=== PATIENT | female | born 1995 | race Caucasian/White ===

== ENCOUNTER 2016-07-26 09:08 | Emergency (ER) | payer OTHER ==
[~2016-07-26] VITALS: Ht 160 cm; Wt 105.0 kg
[~2016-07-26 09:08] MED LIST: DEPO400I IM
[2016-07-26 09:12] VITALS: BP 144/82; PULSE 85; RESP 14; TEMP 98; O2SAT 98
[2016-07-26 09:35] VITALS: BP 144/82; PULSE 85; RESP 16; TEMP 98; O2SAT 98
[2016-07-26] MEDS ORDERED: birth control PO (09:44)
[2016-07-26] MEDS ORDERED: ONDANSETRON ODT 4 MG TAB PO ONE (09:45)
[2016-07-26] MEDS ORDERED: ZOFR4TAB PO (10:17)
--- NOTE | 2016-07-26 10:20 | PD ---
HPI Chief Complaint: GI Complaint Time Seen by Provider: 09:31 Travel History International Travel<30 days: No Contact w/Intl Traveler<30days: No Traveled to known affect area: No History of Present Illness HPI The patient was seen and examined in the presence of the nurse. This patient complains of nausea and vomiting and diarrhea. Started yesterday. Severity is mild at this point. She one episode of diarrhea today and vomited one time. No alleviating factors. She is not having abdominal pain. PFSH Past Medical History Anxiety: Yes Developmental Delay: No Diminished Hearing: No Respiratory: Yes (CHILDHOOD ASTHMA) Immunizations Current: Yes Tetanus Vaccination: < 5 Years ?: Not LMP: 07/20/16 Past Surgical History Other Surgery: Yes (AUGMENTATION) Social History Alcohol Use: Yes (OCC) Tobacco Use: Yes (2 cigg daily) Substance Use: No Allergies-Medications (Allergen,Severity, Reaction): Coded Allergies: No Known Allergies (Verified , 07/26/16) Reported Meds & Prescriptions Reported Meds & Active Scripts Active Zofran (Ondansetron HCl) 4 Mg Tab 4 Mg PO Q6HR PRN Reported [ control] 1 Tab PO DAILY Review of Systems General / Constitutional: No: Fever HENT: No: Headaches Cardiovascular: No: Chest Pain or Discomfort Respiratory: No: Cough Physical Exam Narrative GASTROINTESTINAL: Abdomen soft, non-tender, nondistended. Positive bowel sounds. No hepato-splenomegaly, or palpable masses. No guarding. SKIN: Focused skin assessment reveals no rash or ulcers. Skin is warm and dry. Palpation shows no induration or nodules. NECK: Symmetrical appearance, midline trachea. No mass or crepitus. Thyroid without enlargement, tenderness, or mass. Data Data Last Documented VS Vital Signs Date Time Temp Pulse Resp B/P Pulse Ox O2 Delivery O2 Flow Rate FiO2 07/26/16 09:35 98.0 85 16 144/82 98 07/26/16 09:12 Room Air Orders Ed Urine Pregnancytest Poc (07/26/16 09:12) Ondansetron Odt (Zofran Odt) (07/26/16 09:45) MDM Medical Decision Making Medical Screen Exam Complete: Yes Emergency Medical Condition: Yes Medical Record Reviewed: Yes Differential Diagnosis Gastroenteritis, food poisoning, colitis Narrative Course I have reviewed the patient's electronic medical record. Patient looks clinically well. She has soft benign nontender abdomen. She is euvolemic Urine is negative I prescribed her some Zofran gave her dose now Diagnosis Primary Impression: Nausea vomiting and diarrhea Additional Instructions: The patient was advised to follow up with their physician and return if they worsen. I have recommended clear liquids for 24 hours, then gradually advance as tolerated. Med/Other Pt SpecificInfo: Prescription(s) given Scripts Ondansetron (Zofran)4 Mg Tab4 Mg PO Q6HR PRN (NAUSEA OR VOMITING) #12 TAB Ref 0 Prov:Josh Terry MD 07/26/16 Disposition: 01 DISCHARGE HOME Condition: Stable Josh Terry MD Jul 26, 2016 10:19
== END 2016-07-26 10:28 | disposition home or self-care (01) ==
LOC: PHED 09:08
DX: R11.2 Nausea with vomiting, unspecified (principal); R19.7 Diarrhea, unspecified
CPT/HCPCS: 84703; 99283

== ENCOUNTER 2016-07-28 09:13 | Emergency (ER) | payer OTHER ==
[~2016-07-28] VITALS: Ht 160 cm; Wt 100.0 kg
[~2016-07-28 09:13] MED LIST changes: -DEPO400I IM; +ZOFR4TAB PO; +birth control PO
[2016-07-28 09:15] VITALS: BP 130/83; PULSE 88; RESP 20; TEMP 98.3; O2SAT 99
--- NOTE | 2016-07-28 09:56 | PD ---
HPI Chief Complaint: GI Complaint Time Seen by Provider: 09:47 Travel History International Travel<30 days: No Contact w/Intl Traveler<30days: No Traveled to known affect area: No History of Present Illness HPI The patient was seen and examined in the presence of the nurse. This patient complains of diarrhea with some small amounts of bright red blood in the diarrhea. I saw HER-2 days ago for her nausea vomiting diarrhea. Zofran has stopped her nausea and vomiting but she had 3 episodes of liquid runny stool this morning. Not having fever or abdominal pain. Symptoms severity is to moderate. Nausea alleviated by medication. Duration 3 days PFSH Past Medical History Anxiety: Yes Developmental Delay: No Diminished Hearing: No Respiratory: Yes (CHILDHOOD ASTHMA) Immunizations Current: Yes ?: Not LMP: 07/21/16 Past Surgical History Other Surgery: Yes (BREAST AUGMENTATION) Social History Alcohol Use: Yes (OCC wine) Tobacco Use: Yes (1/4 ppd cigs) Substance Use: No Allergies-Medications (Allergen,Severity, Reaction): Coded Allergies: No Known Allergies (Verified , 07/26/16) Reported Meds & Prescriptions Reported Meds & Active Scripts Active Zofran (Ondansetron HCl) 4 Mg Tab 4 Mg PO Q6HR PRN Reported [ control] 1 Tab PO DAILY Review of Systems General / Constitutional: No: Fever Eyes: No: Visual changes HENT: No: Headaches Cardiovascular: No: Chest Pain or Discomfort Respiratory: No: Shortness of Breath Gastrointestinal: Positive: Diarrhea, Hematochezia, No: Abdominal Pain Genitourinary: No: Dysuria Musculoskeletal: No: Pain Skin: No Rash Neurologic: No: Weakness Psychiatric: No: Depression Endocrine: No: Polydipsia Hematologic/Lymphatic: No: Easy Bruising Physical Exam Narrative GENERAL: Well-nourished, well-developed patient in no apparent distress. SKIN: Focused skin assessment reveals no rash and nodules. Skin is Warm and dry. HEAD: Atraumatic. Normocephalic. EYES: Pupils equal and round. No scleral icterus. No injection or drainage. ENT: No nasal bleeding or discharge. Mucous membranes pink and moist. NECK: Trachea midline. No JVD. CARDIOVASCULAR: Regular rate and rhythm. No murmur appreciated. RESPIRATORY: No accessory muscle use. Clear to auscultation. Breath sounds equal bilaterally. GASTROINTESTINAL: Abdomen soft, non-tender, nondistended. Hepatic and splenic margins not palpable. MUSCULOSKELETAL: No obvious deformities. No clubbing. No cyanosis. No edema. NEUROLOGICAL: Awake and alert. No obvious cranial nerve deficits. Motor grossly within normal limits. Normal speech. PSYCHIATRIC: Appropriate mood and affect; insight and judgment normal. Data Data Last Documented VS Vital Signs Date Time Temp Pulse Resp B/P Pulse Ox O2 Delivery O2 Flow Rate FiO2 07/28/16 09:15 98.3 88 20 130/83 99 Room Air Orders Sodium Chlor 0.9% 1000 Ml Inj (Ns 1000 M (07/28/16 10:00) Iv Access Insert/Monitor (07/28/16 09:52) Complete Blood Count With Diff (07/28/16 09:52) Basic Metabolic Panel (Bmp) (07/28/16 09:52) Labs Laboratory Tests Test 07/28/16 10:15 White Blood Count 8.8 TH/MM3 Red Blood Count 4.96 MIL/MM3 Hemoglobin 15.2 GM/DL Hematocrit 44.0 % Mean Corpuscular Volume 88.8 FL Mean Corpuscular Hemoglobin 30.6 PG Mean Corpuscular Hemoglobin 34.5 % Concent Red Cell Distribution Width 12.2 % Platelet Count 233 TH/MM3 Mean Platelet Volume 8.7 FL Neutrophils (%) (Auto) 66.1 % Lymphocytes (%) (Auto) 26.0 % Monocytes (%) (Auto) 6.0 % Eosinophils (%) (Auto) 1.4 % Basophils (%) (Auto) 0.5 % Neutrophils # (Auto) 5.8 TH/MM3 Lymphocytes # (Auto) 2.3 TH/MM3 Monocytes # (Auto) 0.5 TH/MM3 Eosinophils # (Auto) 0.1 TH/MM3 Basophils # (Auto) 0.0 TH/MM3 CBC Comment DIFF FINAL Differential Comment Sodium Level 138 MEQ/L Potassium Level 4.2 MEQ/L Chloride Level 107 MEQ/L Carbon Dioxide Level 21.3 MEQ/L Anion Gap 10 MEQ/L Blood Urea Nitrogen 6 MG/DL Creatinine 0.69 MG/DL Estimat Glomerular Filtration 107 ML/MIN Rate Random Glucose 84 MG/DL Calcium Level 9.3 MG/DL [facility] Medical Decision Making Medical Screen Exam Complete: Yes Emergency Medical Condition: Yes Medical Record Reviewed: Yes Differential Diagnosis Colitis, gastritis, food poisoning Narrative Course I have reviewed the patient's electronic medical record. Reviewed her visit from 2 days ago. She had negative urine at that time IV placed CBC is normal Metabolic profile is normal I gave her 1 L normal saline IV bolus She has normal vital signs and a soft benign nontender abdomen Recommend primary care follow-up and if bleeding persists to follow up with GI Diagnosis Primary Impression: Hematochezia Additional Impression: Diarrhea Qualified Code: R19.7 - Diarrhea, unspecified type Additional Instructions: The patient was advised to follow up with their physician and return if they worsen. Follow-up with GI physician if bloody stool persists Med/Other Pt SpecificInfo: Other Disposition: DISCHARGE HOME Condition: Stable Josh Terry MD Jul 28, 2016 09:56
[2016-07-28] MEDS ORDERED: SODIUM CHLOR 0.9% 1000 ML INJ 1,000 ML IV ONE (10:00)
[2016-07-28 10:36] LABS: AUTOMATED NEUTROPHIL # 5.8 TH/MM3 (1.8-7.7); BASOPHIL % 0.5 % (0.0-2.0); EOSINOPHIL # 0.1 TH/MM3 (0-0.4); EOSINOPHIL % 1.4 % (0.0-4.0); HEMO FLAGS DIFF FINAL; LYMPHOCYTE # 2.3 TH/MM3 (1.0-4.8); MEAN CELL VOLUME 88.8 FL (80.0-100.0); MEAN CORPUSCULAR HEMOGLOBIN 30.6 PG (27.0-34.0); MEAN CORPUSCULAR HGB CONC 34.5 % (32.0-36.0); NEUT % 66.1 % (16.0-70.0); PLATELET COUNT 233 TH/MM3 (150-450); RED BLOOD COUNT 4.96 MIL/MM3 (4.00-5.30); RED CELL DISTRIBUTION WIDTH 12.2 % (11.6-17.2); WHITE BLOOD COUNT 8.8 TH/MM3 (4.0-11.0)
[2016-07-28 10:46] LABS: BICARBONATE 21.3 MEQ/L (21.0-32.0); POTASSIUM 4.2 MEQ/L (3.5-5.1)
== END 2016-07-28 12:00 | disposition home or self-care (01) ==
LOC: NEPD 09:13
DX: K92.1 Melena (principal); R19.7 Diarrhea, unspecified
CPT/HCPCS: 80048; 85025; 99284; J7030

== ENCOUNTER 2016-10-21 14:56 | Emergency (ER) | payer OTHER ==
[~2016-10-21] VITALS: Ht 160 cm; Wt 90.0 kg
[2016-10-21 14:57] VITALS: BP 124/91; PULSE 109; RESP 17; TEMP 98.8; O2SAT 99
[2016-10-21] MEDS ORDERED: SODIUM CHLORIDE 0.9% FLUSH 10 ML FLUSH IV FLUSH PRN (15:15)
--- NOTE | 2016-10-21 15:21 | PD ---
HPI Chief Complaint: GI Complaint Time Seen by Provider: 15:04 Travel History International Travel<30 days: No Contact w/Intl Traveler<30days: No Traveled to known affect area: No History of Present Illness HPI 21-year-old female complains of nausea vomiting and bilateral flank pain. Patient states that the symptoms started about 3 months ago. Patient states that she has intermittent nausea vomiting. Patient states that she has aching pain and sharp pain bilateral flank area intermittently also. Patient states that she has about 35 pounds weight loss over the past 3 months. Patient denies any headache. Patient denies any chest pain or shortness of breath. Patient denies abdominal pain. Patient denies any dysuria or frequency. Patient denies any vaginal discharge or bleeding. Patient denies any chronic medical problem. Patient states that she smoked pot occasionally. Patient denies any other illicit drug abuse. Patient denies any alcohol abuse. PFSH Past Medical History Anxiety: Yes Developmental Delay: No Diminished Hearing: No Respiratory: Yes (CHILDHOOD ASTHMA) Immunizations Current: Yes ?: Not LMP: 10/03/16 Past Surgical History Other Surgery: Yes (BREAST AUGMENTATION) Social History Alcohol Use: Yes (OCC wine) Tobacco Use: Yes (1/4 ppd cigs) Substance Use: No Allergies-Medications (Allergen,Severity, Reaction): Coded Allergies: No Known Allergies (Verified , 07/26/16) Reported Meds & Prescriptions Reported Meds & Active Scripts Active Zofran (Ondansetron HCl) 4 Mg Tab 4 Mg PO Q6HR PRN Reported [ control] 1 Tab PO DAILY Review of Systems General / Constitutional: No: Fever Eyes: No: Visual changes HENT: No: Headaches Cardiovascular: No: Chest Pain or Discomfort Respiratory: No: Shortness of Breath Gastrointestinal: Positive: Nausea, Vomiting, No: Abdominal Pain Genitourinary: No: Dysuria Musculoskeletal: No: Pain Skin: No Rash Neurologic: No: Weakness Psychiatric: No: Depression Endocrine: No: Polydipsia Hematologic/Lymphatic: No: Easy Bruising Physical Exam Narrative GENERAL: Well-nourished, well-developed patient. SKIN: Focused skin assessment warm/dry. HEAD: Normocephalic. EYES: No scleral icterus. No injection or drainage. NECK: Supple, trachea midline. No JVD or lymphadenopathy. CARDIOVASCULAR: Regular rate and rhythm without murmurs, gallops, or rubs. RESPIRATORY: Breath sounds equal bilaterally. No accessory muscle use. GASTROINTESTINAL: Abdomen soft, non-tender, nondistended. MUSCULOSKELETAL: No cyanosis, or edema. BACK: Patient has mild tenderness on palpation bilateral flank area. No CVA tenderness. Neurologic exam normal. Data Data Last Documented VS Vital Signs Date Time Temp Pulse Resp B/P (MAP) Pulse Ox O2 Delivery O2 Flow Rate FiO2 10/21/16 14:57 98.8 109 17 124/91 (102) 99 Orders Orders Complete Blood Count With Diff (10/21/16 15:13) Comprehensive Metabolic Panel (10/21/16 15:13) Lipase (10/21/16 15:13) Urinalysis - C+S If Indicated (10/21/16 15:13) Ct Abd/Pel W Iv Contrast(Rout) (10/21/16 15:13) Iv Access Insert/Monitor (10/21/16 15:13) Ecg Monitoring (10/21/16 15:13) Oximetry (10/21/16 15:13) Sodium Chloride 0.9% Flush (Ns Flush) (10/21/16 15:15) Ed Urine Pregnancytest Poc (10/21/16 15:13) [facility] Medical Decision Making Medical Screen Exam Complete: Yes Emergency Medical Condition: Yes Differential Diagnosis Differential diagnosis including musculoskeletal, gastritis, PUD, pancreatitis, cholecystitis, colitis, UTI, pyelonephritis, nephrolithiasis. Narrative Course 21-year-old female with intermittent nausea vomiting and bilateral flank pain. Gurmeet Christianson MD Oct 21, 2016 15:21
[2016-10-21 15:32] VITALS: RESP 16; O2SAT 96
[2016-10-21 15:41] LABS: AUTOMATED NEUTROPHIL # 4.5 TH/MM3 (1.8-7.7); BASOPHIL % 0.4 % (0.0-2.0); EOSINOPHIL # 0.1 TH/MM3 (0-0.4); EOSINOPHIL % 1.8 % (0.0-4.0); HEMATOCRIT 44.4 % (35.0-46.0); HEMO FLAGS DIFF FINAL; LYMPH % 29.8 % (9.0-44.0); LYMPHOCYTE # 2.2 TH/MM3 (1.0-4.8); MEAN CELL VOLUME 93.9 FL (80.0-100.0); MEAN CORPUSCULAR HEMOGLOBIN 31.9 PG (27.0-34.0); MONO % 6.6 % (0.0-8.0); NEUT % 61.4 % (16.0-70.0); PLATELET COUNT 211 TH/MM3 (150-450); RED BLOOD COUNT 4.73 MIL/MM3 (4.00-5.30); WHITE BLOOD COUNT 7.3 TH/MM3 (4.0-11.0)
[2016-10-21 15:49] LABS: BLOOD, URINE NEG (NEG); COMMENT (UR) CULT NOT INDICATED; CULTURE IF INDICATED CULT NOT INDICATED; GLUCOSE,URINE NEG (NEG); KETONE, URINE NEG (NEG); NITRITE,URINE NEG (NEG); SQUAMOUS EPITHELIAL CELL URINE 3 /hpf (0-5); URINE COLOR LIGHT-YELLOW (YELLW/STRAW)
[2016-10-21 17:11] LABS: ALT (GPT) 17 U/L (10-53); ANION GAP 7 MEQ/L (5-15); AST (GOT) 16 U/L (15-37); BICARBONATE 26.7 MEQ/L (21.0-32.0); BLOOD UREA NITROGEN 9 MG/DL (7-18); CHLORIDE 107 MEQ/L (98-107); GLOMERULAR FILTRATION RATE 90 ML/MIN (>89); POTASSIUM 3.8 MEQ/L (3.5-5.1); SODIUM (NA) 141 MEQ/L (136-145)
[2016-10-21 17:15] LABS: ALKALINE PHOSPHATASE 93 U/L (45-117); TOTAL BILIRUBIN ADULT 1.1 MG/DL (0.2-1.0)
[2016-10-21] MEDS ORDERED: IOHEXOL 350 MG/ML 10 ML VIAL (for RAD DIAG) IVCONTRAST ONE (17:55)
--- NOTE | 2016-10-21 18:08 | RADRPT ---
EXAM DATE/TIME: 10/21/2016 17:55 [facility] COMPARISON: No previous studies available for comparison. INDICATIONS : Bilateral flank pain. IV CONTRAST: 90 cc Omnipaque 350 (iohexol) IV ORAL CONTRAST: No oral contrast ingested. RADIATION DOSE: 14.59 CTDIvol (mGy) MEDICAL HISTORY : None SURGICAL HISTORY : None. ENCOUNTER: Initial ACUITY: 3 months PAIN SCALE: 6/10 LOCATION: Bilateral flank TECHNIQUE: Volumetric scanning of the abdomen and pelvis was performed. Using automated exposure control and ad justment of the mA and/or kV according to patient size, radiation dose was kept as low as reasonably achievable to obtain optimal diagnostic quality images. DICOM format image data is available electro nically for review and comparison. FINDINGS: Lung base is are clear. Liver, spleen, pancreas and adrenals are unremarkable. There is symmetrical renal function without stone. The left kidney is malrotated. There case along expected course of either ureter Region the cecum angiogram unremarkable Scattered diverticula are present sigmoid colon without diverticulitis Cystic 2.6 cm mass right adnexal region. There is no free fluid Abdominal wall is intact There is no ascites or retroperitoneal adenopathy Review of bone reveals mild degenerative changes. CONCLUSION: Negative, I do not see an etiology for the patient's flank pain.. Chris Ty MD FACR on October 21, 2016 at 18:03 Board Certified Radiologist. This report was verified electronically.
--- NOTE | 2016-10-21 18:30 | PD ---
Physical Exam Date Seen by Provider: Oct 21, 2016 Time Seen by Provider: 18:29 Narrative 21-year-old female came to the emergency room complaining of some abdominal pain. Patient was seen by the previous ER physician. Please refer to his notes for exact history and physical. Sign out was to follow-up on the labs and the CAT scan. All the test results of back and they're within normal limits. I'm comfortable discharging this patient home. Data Data Last Documented VS Vital Signs Date Time Temp Pulse Resp B/P (MAP) Pulse Ox O2 Delivery O2 Flow Rate FiO2 10/21/16 18:49 10/21/16 15:34 16 10/21/16 15:32 96 Room Air 10/21/16 14:57 98.8 109 Orders Orders Complete Blood Count With Diff (10/21/16 15:13) Comprehensive Metabolic Panel (10/21/16 15:13) Lipase (10/21/16 15:13) Urinalysis - C+S If Indicated (10/21/16 15:13) Ct Abd/Pel W Iv Contrast(Rout) (10/21/16 15:13) Iv Access Insert/Monitor (10/21/16 15:13) Ecg Monitoring (10/21/16 15:13) Oximetry (10/21/16 15:13) Sodium Chloride 0.9% Flush (Ns Flush) (10/21/16 15:15) Ed Urine Pregnancytest Poc (10/21/16 15:13) Iohexol 350 Inj (Omnipaque 350 Inj) (10/21/16 17:55) Labs Laboratory Tests Test 10/21/16 15:30 10/21/16 16:47 White Blood Count 7.3 TH/MM3 Red Blood Count 4.73 MIL/MM3 Hemoglobin 15.1 GM/DL Hematocrit 44.4 % Mean Corpuscular Volume 93.9 FL Mean Corpuscular Hemoglobin 31.9 PG Mean Corpuscular Hemoglobin Concent 34.0 % Red Cell Distribution Width 13.0 % Platelet Count 211 TH/MM3 Mean Platelet Volume 9.2 FL Neutrophils (%) (Auto) 61.4 % Lymphocytes (%) (Auto) 29.8 % Monocytes (%) (Auto) 6.6 % Eosinophils (%) (Auto) 1.8 % Basophils (%) (Auto) 0.4 % Neutrophils # (Auto) 4.5 TH/MM3 Lymphocytes # (Auto) 2.2 TH/MM3 Monocytes # (Auto) 0.5 TH/MM3 Eosinophils # (Auto) 0.1 TH/MM3 Basophils # (Auto) 0.0 TH/MM3 CBC Comment DIFF FINAL Differential Comment Urine Color LIGHT-YELLOW Urine Turbidity HAZY Urine pH 6.0 Urine Specific [place] 1.005 Urine Protein NEG mg/dL Urine Glucose (UA) NEG mg/dL Urine Ketones NEG mg/dL Urine Occult Blood NEG Urine Nitrite NEG Urine Bilirubin NEG Urine Urobilinogen LESS THAN 2.0 MG/DL Urine Leukocyte Esterase MOD Urine RBC 1 /hpf Urine WBC 5 /hpf Urine Squamous Epithelial Cells 3 /hpf Urine Amorphous Sediment RARE Microscopic Urinalysis Comment CULT NOT INDICATED Blood Urea Nitrogen 9 MG/DL Creatinine 0.80 MG/DL Random Glucose 73 MG/DL Total Protein 6.7 GM/DL Albumin 3.4 GM/DL Calcium Level 9.0 MG/DL Alkaline Phosphatase 93 U/L Aspartate Amino Transf (AST/SGOT) 16 U/L Alanine Aminotransferase (ALT/SGPT) 17 U/L Total Bilirubin 1.1 MG/DL Sodium Level 141 MEQ/L Potassium Level 3.8 MEQ/L Chloride Level 107 MEQ/L Carbon Dioxide Level 26.7 MEQ/L Anion Gap 7 MEQ/L Estimat Glomerular Filtration Rate 90 ML/MIN Lipase 77 U/L MDM Supervised Visit with JOSIE: No Diagnosis Primary Impression: Abdominal pain Qualified Codes: R10.9 - Unspecified abdominal pain Referrals: Primary Care Physician Additional Instruction: Follow-up with your primary care. Disposition: 01 DISCHARGE HOME Condition: Stable Nuno Rubio MD Oct 21, 2016 18:30
== END 2016-10-21 18:50 | disposition home or self-care (01) ==
LOC: NEPD 14:56
DX: R10.9 Unspecified abdominal pain (principal); F17.210 Nicotine dependence, cigarettes, uncomplicated
CPT/HCPCS: 74177; 80053; 81001; 83690; 84703; 85025; 99285; Q9967

== ENCOUNTER 2018-01-18 14:11 | Inpatient (IN) ==
[2018-01-18 16:39] LABS: Baso % (Auto) 0.2 % (0.0-2.0); Eos # (Auto) 0.1 th/mm3 (0.0-0.4); Eos % (Auto) 1.1 % (0.0-4.0); Hematocrit 37.6 % (35.0-46.0); Hemoglobin 13.2 gm/dL (11.6-15.3); Lymph # (Auto) 1.7 th/mm3 (1.0-4.8); Mean Corpuscular HGB Conc 35.1 % (32.0-36.0); Mean Corpuscular Hemoglobin 33.1 pg (27.0-34.0); Mean Corpuscular Volume 94.2 fL (80.0-100.0); Mean Platelet Volume 9.9 fL (7.0-11.0); Mono # (Auto) 0.8 th/mm3 (0.0-0.9); Mono % (Auto) 7.3 % (0.0-8.0); Neut % (Auto) 75.4 % (16.0-70.0); Platelet Count 169 th/mm3 (150-450); Red Blood Count 3.99 mil/mm3 (4.00-5.30); White Blood Count 10.6 th/mm3 (4.0-11.0)
[2018-01-18 16:54] LABS: Bacteria,Urine Moderate /hpf; Bilirubin,Urine Negative (Negative); Clarity,Urine Turbid (Clear); Color,Urine Red (Yellw/Straw); Glucose,Urine (UA) Negative (Negative); Leukocyte Esterase,Urine Large (Negative); Nitrite,Urine Negative (Negative); Squamous Epithelial Cell,Urine 20 /hpf (0-5)
[2018-01-18] MEDS ORDERED: Oxytocin 30 Units/500ml Premix 30 UNITS/500 ML BAG IV.SIG ONE (16:56)
[2018-01-18] MEDS ORDERED: Sodium Chlor 0.9% Inj 500 ML IV.SIG PRN (16:56)
[2018-01-18] MEDS ORDERED: Naloxone Inj 0.4 MG/ML Vial IV.PUSH PRN (16:56)
[2018-01-18] MEDS ORDERED: Sod Chloride 0.9% Inj 1,000 ML IV.CONT PRN (16:56)
[2018-01-18] MEDS ORDERED: fentaNYL Citrate Inj 100 MCG/2 ML Ampul IV.PUSH PRN ×2 (16:56)
[2018-01-18] MEDS ORDERED: Citric Acid/Sodium Citrate Liq 30 ML UDC PO SCH (17:00)
[2018-01-18 17:09] LABS: Amphetamine Screen,Urine Neg (Neg); Barbiturate Screen,Urine Neg (Neg); Cannabinoid Screen,Urine Neg (Neg); Cocaine Screen,Urine Neg (Neg)
[2018-01-18 17:09] LABS: Albumin 2.8 g/dL (3.4-5.0); Anion Gap 8 meq/L (5-15); Aspartate Aminotransferase 14 U/L (15-37); Blood Urea Nitrogen 12 mg/dL (7-18); Calcium 8.6 mg/dL (8.5-10.1); Chloride 106 meq/L (98-107); Glomerular Filtration Rate Greater Than 89 mL/min (>89); Glucose,Random 87 mg/dL (74-106); Potassium 3.8 meq/L (3.5-5.1); Sodium 138 meq/L (136-145)
[2018-01-18 17:11] LABS: Opiate Screen,Urine Neg (Neg)
[2018-01-18 17:14] LABS: Alanine Aminotransferase 19 U/L (10-53); Alkaline Phosphatase 191 U/L (45-117); Total Protein 6.8 g/dL (6.4-8.2); Uric Acid 3.1 mg/dl (2.6-6.0)
[2018-01-18 17:16] LABS: Total Protein,Urine Random 45.4 mg/dL (0-11.8)
[2018-01-18 17:21] LABS: Protein/Creatinine Ratio,Urine 0.42 (0.00-0.14)
[2018-01-18] MEDS ORDERED: Oxytocin 30 Units/500ml Premix 30 UNITS/500 ML BAG IV.CONT PRN (17:35)
--- NOTE | 2018-01-18 17:46 | P.HPOB ---
History of Present Illness Service: obstetrics Primary Care Physician: Gary Navarro MD Chief Complaint: pt of Dr. Vera's, induction for atypical preeclampsia with symptoms History of Present Illness: 22 yo G1 with loredo female IUP at 37w5d admit per Dr. Vera for recent history of new mildly elevated BP in office, pt c/o headache, edema, and 7# weight gain over past week. No severe range pressures. Pt's has otherwise been uncomplicated. No LOF, no VB, endorses good movement. Weeks Gestation:: 37 Para: 0 : 1 Total # of Miscarriage(s): 0 Total # of Abortions (Spontaneous & Elective): 0 - Inpatient Certification I certify that the inpatient services were ordered in accordance with Medicare regulations governing the order. This includes certification that hospital inpatient services are reasonable and necessary and in the case of services not specified as inpatient-only under 42 CFR 419.22(n), that they are appropriately provided as inpatient services in accordance to with the 2-midnight benchmark under 43 CFR 412.3(e) Estimated Total Length of Stay (Days): 4 Plans for Post Hospital Care: Home Review of Systems All other systems reviewed negative except as stated in HPI PMFSH - Medical / Surgical Hx Neg / Unobtainable Medical Problems Denied: Yes - Surgical History Surgical History: Surgical History (Last Updated 01/18/18 @ 17:41 by Brook Oliveira MD) Hx of breast augmentation - Family History Family History: Family History (Last Updated 01/18/18 @ 17:41 by Brook Oliveira MD) Other No significant family history - Social History I have reviewed the patient's Social History: Yes - Tobacco History Second Hand Smoke Exposure: No Tobacco Use In Past 30 Days: No Smoking Status: Former smoker (marijuana) - Alcohol History How Often Do You Have a Drink Containing Alcohol: Never - Substance Use History Substance History: Past History (marijuana use) - Travel History History of Recent Travel: No Recent Travel in the [place] Within the Last 8 Weeks: No Recent Travel Out of the Country Within the Last 8 Weeks: No - Immunization History Hx Influenza Vaccine This Season: Yes Medications and Allergies Active Medications: Active Medications Calcium Carbonate (Tums Chew) 1,000 mg PO Q4H PRN PRN Reason: HEARTBURN Last Admin: 01/18/18 16:23 Dose: 1,000 mg Citric Acid/Sodium Citrate (Sodium Citrate/Citric Acid Liq) 30 ml PO [facility] Stop: 01/22/18 16:59 Fentanyl Citrate (Fentanyl Inj) 50 mcg IV.PUSH Q1H PRN PRN Reason: Pain Scale 3 - 5 Fentanyl Citrate (Fentanyl Inj) 100 mcg IV.PUSH Q1H PRN PRN Reason: PAIN SCALE 6 TO 10 Lactated Ringer's (Lr 1000 Ml Inj) 1,000 mls @ 125 mls/hr IV.CONT .Q8H EBONY Sodium Chloride (Ns Inj) 500 mls @ 1,000 mls/hr IV.SIG UNSCH PRN PRN Reason: SEE LABEL COMMENTS Sodium Chloride (Ns Inj) 1,000 mls @ 100 mls/hr IV.CONT .Q10H PRN PRN Reason: SEE LABEL COMMENTS Lactated Ringer's (Lr 1000 Ml Inj) 1,000 mls @ 3,000 mls/hr IV.SIG UNSCH PRN PRN Reason: compromise or epidural Oxytocin (Pitocin 30 Units/Ns 500 Ml Premix) 30 units in 500 mls @ 2 mls/hr IV.CONT TITRATE PRN; Protocol PRN Reason: For induction of labor Lidocaine HCl (Xylocaine 1% Inj) 0.1 ml I-DERMAL PRN PRN PRN Reason: For IV start Stop: 01/21/18 16:55 Lidocaine HCl (Xylocaine 1% Inj) 10 ml INFILTRATN PRN PRN PRN Reason: For episiotomy repair Stop: 01/20/18 16:55 Mineral Oil (Muri-Lube Oil) 10 ml TOPICAL PRN PRN PRN Reason: PRN perineal massage Naloxone HCl (Narcan Inj) 0.1 mg IV.PUSH Q2M PRN PRN Reason: for opiate reversal Ondansetron HCl (Zofran Inj) 4 mg IV.PUSH Q6H PRN PRN Reason: NAUSEA OR VOMITING Allergies Allergy/AdvReac Type Severity Reaction Status Date / Time latex Allergy Rash Verified 12/11/17 13:54 Home Medications Medication Instructions Recorded Confirmed Type PNV cmb#[id number] fumarate-FA 1 tab PO DAILY 12/11/17 01/18/18 History [] Exam Vital signs: Vital Signs 01/18/18 15:25 01/18/18 15:35 01/18/18 17:10 Temperature Pulse Rate 104 H 102 H 94 H Respiratory Rate Blood Pressure 126/68 123/62 135/85 01/18/18 17:25 Temperature 98.0 F Pulse Rate 96 H Respiratory Rate 20 Blood Pressure 114/77 Intake & Output 01/17/18 01/18/18 01/18/18 18:59 06:59 18:59 Weight 99.79 kg - Constitutional no acute distress - Routine HEENT Exam Head: Present: normocephalic, atraumatic Eye: Present: EOMI ENT: Present: mucous membranes moist - Routine Neck Exam Present: supple, full ROM - Routine Chest/Breast/Axilla Exam Chest wall: Absent: tenderness, mass - Routine Respiratory Exam Present: CTA bilaterally. Absent: accessory muscle use - Routine Cardiovascular Exam Present: RRR. Absent: bradycardia - Routine Abdominal Exam Comments: gravid c/w dates - Routine Extremities Exam Present: edema (to bilateral LE). Absent: cyanosis - Routine Skin Exam Present: intact. Absent: cyanosis - Routine Neurological Exam Present: alert, oriented X3 Results - Labs CBC & Chem 7: 01/18/18 15:35 01/18/18 15:35 Labs: Laboratory Results - last 24 hr 01/18/18 01/18/18 01/18/18 15:15 15:15 15:15 WBC RBC Hgb Hct MCV MCH MCHC RDW Plt Count MPV Neut % (Auto) Lymph % (Auto) [place] % (Auto) Eos % (Auto) Baso % (Auto) Neut # (Auto) Lymph # (Auto) [place] # (Auto) Eos # (Auto) Baso # (Auto) WBC Differential Differential Comment Sodium Potassium Chloride Carbon Dioxide Anion Gap BUN Creatinine Estimated GFR Random Glucose Uric Acid Calcium Total Bilirubin AST ALT Alkaline Phosphatase Total Protein Albumin Urine Color Red Urine Clarity Turbid H Urine pH 6.0 Ur Specific [place] 1.020 Urine Protein 30 H Urine Glucose (UA) Negative Urine Ketones Negative Urine Occult Blood Small H Urine Nitrate Negative Urine Bilirubin Negative Urine Urobilinogen Less than 2 Ur Leukocyte Esterase Large H Urine RBC 15 H Urine WBC 90 H Ur Squamous Epith Cells 20 Urine Bacteria Moderate H Micro UA Comment Culture indicated Ur Microscopic Review Not Reportable Urine Culture Comments Culture indicated Ur Random Creatinine 107 U Random Total Protein 45.4 H Protein/Creatinin Ratio 0.42 H Urine Opiates Screen Neg Ur Barbiturates Screen Neg Ur Amphetamines Screen Neg U Benzodiazepines Scrn Neg Urine Cocaine Screen Neg U Cannabinoids Screen Neg Blood Type Blood Type Recheck 01/18/18 01/18/18 01/18/18 15:35 15:35 15:35 WBC 10.6 RBC 3.99 L Hgb 13.2 Hct 37.6 MCV 94.2 MCH 33.1 MCHC 35.1 RDW 13.0 Plt Count 169 MPV 9.9 Neut % (Auto) 75.4 H Lymph % (Auto) 16.0 [place] % (Auto) 7.3 Eos % (Auto) 1.1 Baso % (Auto) 0.2 Neut # (Auto) 8.0 H Lymph # (Auto) 1.7 [place] # (Auto) 0.8 Eos # (Auto) 0.1 Baso # (Auto) 0.0 WBC Differential . Differential Comment Auto diff final Sodium 138 Potassium 3.8 Chloride 106 Carbon Dioxide 24.0 Anion Gap 8 BUN 12 Creatinine 0.60 Estimated GFR Greater than 89 Random Glucose 87 Uric Acid 3.1 Calcium 8.6 Total Bilirubin 0.7 AST 14 L ALT 19 Alkaline Phosphatase 191 H Total Protein 6.8 Albumin 2.8 L Urine Color Urine Clarity Urine pH Ur Specific [place] Urine Protein Urine Glucose (UA) Urine Ketones Urine Occult Blood Urine Nitrate Urine Bilirubin Urine Urobilinogen Ur Leukocyte Esterase Urine RBC Urine WBC Ur Squamous Epith Cells Urine Bacteria Micro UA Comment Ur Microscopic Review Urine Culture Comments Ur Random Creatinine U Random Total Protein Protein/Creatinin Ratio Urine Opiates Screen Ur Barbiturates Screen Ur Amphetamines Screen U Benzodiazepines Scrn Urine Cocaine Screen U Cannabinoids Screen Blood Type O Positive Blood Type Recheck Required Group B Strep: Negative Caprini VTE Risk Assessment Caprini VTE Risk Assessment: No/Low Risk (score <= 1) VTE Pharmacological Exception Reason: Epidural catheter Caprini Risk Assessment Model: Point Value = 1 Point Value = 2 Point Value = 3 Point Value = 5 Age 41-60 Minor surgery BMI > 25 kg/m2 Swollen legs Varicose veins or History of unexplained or recurrent spontaneous Oral contraceptives or hormone replacement Sepsis (< 1 month) Serious lung disease, including pneumonia (< 1 month) Abnormal pulmonary function Acute myocardial infarction Congestive heart failure (< 1 month) History of inflammatory bowel disease Medical patient at bed rest Age 61-74 Arthroscopic surgery Major open surgery (> 45 min) Laparoscopic surgery (> 45 min) Malignancy Confined to bed (> 72 hours) Immobilizing plaster cast Central venous access Age >= 75 History of VTE Family history of VTE Factor V Leiden Prothrombin [id number] Lupus anticoagulant Anticardiolipin antibodies Elevated serum homocysteine Heparin-induced thrombocytopenia Other congenital or acquired thrombophilia Stroke (< 1 month) Elective arthroplasty Hip, pelvis, or leg fracture Acute spinal cord injury (< 1 month) Prophylaxis Regimen: Total Risk Factor Score Risk Level Prophylaxis Regimen 0-1 Low Early ambulation 2 Moderate Order ONE of the following: *Sequential Compression Device (SCD) *Heparin 5000 units SQ BID 3-4 Higher Order ONE of the following medications: *Heparin 5000 units SQ TID *Enoxaparin/Lovenox 40 mg SQ daily (WT < 150 kg, CrCl > 30 mL/min) *Enoxaparin/Lovenox 30 mg SQ daily (WT < 150 kg, CrCl > 10-29 mL/min) *Enoxaparin/Lovenox 30 mg SQ BID (WT < 150 kg, CrCl > 30 mL/min) AND/OR *Sequential Compression Device (SCD) 5 or more Highest Order ONE of the following medications: *Heparin 5000 units SQ TID (Preferred with Epidurals) *Enoxaparin/Lovenox 40 mg SQ daily (WT < 150 kg, CrCl > 30 mL/min) *Enoxaparin/Lovenox 30 mg SQ daily (WT < 150 kg, CrCl > 10-29 mL/min) *Enoxaparin/Lovenox 30 mg SQ BID (WT < 150 kg, CrCl > 30 mL/min) AND *Sequential Compression Device (SCD) Assessment and Plan - Diagnosis (1) Preeclampsia Code(s): O14.90 - Unspecified pre-eclampsia, unspecified trimester Status: Acute (2) 37 weeks gestation of Code(s): Z3A.37 - 37 weeks gestation of Status: Acute - Plan 22 yo G1 with loredo IUP at 37w5d, admit for labor induction due to suspected preeclampsia based on symptoms 1) IOL: reviewed w/ pt r/b/a of labor induction including distress, failure of induction, possibility of ; pt voices understanding and consents to induction process 2) preeclampsia: mild range but symptoms present, PIH labs ordered on admission & continuous BP monitoring, no indication for magnesium sulfate at this time 3) GBS negative 4) hx of MJ use: quit in 1st trimester 5) status: vertex, female, Cat I tracing currently, EFW <8# 6) dispo: not meeting criteria; anticipate d/c 2-3d PP Discharge Planning: routine
[2018-01-19] MEDS ORDERED: Oxytocin 30 Units/500ml Premix 30 UNITS/500 ML BAG IV.SIG PRN (09:48)
--- NOTE | 2018-01-19 09:53 | P.OBLABOR ---
Subjective Interval history: overnight had no cervical change, pitocin was up to 10 milliunits/min; turned off early this AM, allowed pt to shower & eat breakfast, now restarting process , able to successfully AROM now and will restart pitocin Objective Vital Signs: Vital Signs - 8 hr 01/19/18 02:35 01/19/18 02:55 01/19/18 03:00 Temperature 98.2 F Pulse Rate 89 91 H 89 Respiratory Rate 18 Blood Pressure 132/91 H 01/19/18 03:40 01/19/18 03:55 01/19/18 05:30 Temperature Pulse Rate 81 79 77 Respiratory Rate Blood Pressure 01/19/18 05:40 01/19/18 06:01 01/19/18 06:25 Temperature 98.5 F Pulse Rate 81 90 100 H Respiratory Rate 18 Blood Pressure 96/64 L 01/19/18 06:55 Temperature Pulse Rate 74 Respiratory Rate Blood Pressure Objective: Pelvic Exam: Cervix: [-] Dilatation: [-] Effacement: [-] Station: [-] Presentation: [-] Membranes: [intact or ruptured] Uterine Contractions: [-] FHT's: Category: [-] Baseline: [-] Reactive: [-] Variability: [-] Decels: [-] Patient Started Active Labor: No Medical Induction of Labor: Yes (-induced hypertension/atypical PreEclampsia) Artificial Rupture of Membrane: Yes (clear, approx 945A) Assessment and Plan - Diagnosis (1) Preeclampsia Code(s): O14.90 - Unspecified pre-eclampsia, unspecified trimester Status: Acute (2) 37 weeks gestation of Code(s): Z3A.37 - 37 weeks gestation of Status: Acute - Plan 22 yo G1 with loredo IUP at 37w6d, admit for labor induction due to suspected preeclampsia based on symptoms 1) IOL: on admission reviewed w/ pt r/b/a of labor induction including distress, failure of induction, possibility of ; pt voices understanding and consents to induction process; did not progress last evening on pitocin overnight; able to AROM this AM and will restart pitocin now 2) preeclampsia: mild range but symptoms present, PIH labs normal to mild abnl, no severe BPs, no indication for magnesium sulfate at this time 3) GBS negative 4) hx of MJ use: quit in 1st trimester 5) status: vertex, female, Cat I tracing currently, EFW <8# 6) dispo: not meeting criteria; anticipate d/c 2-3d PP Discharge Planning: routine
[2018-01-19] MEDS ORDERED: fentaNYL 2MCG-Bupiv 0.125% Epi 150 ML EPIDURAL ONE (10:59)
[2018-01-19] MEDS ORDERED: fentaNYL Citrate Inj 100 MCG/2 ML Ampul EPIDURAL ONE (13:09)
[2018-01-19] MEDS ORDERED: fentaNYL 2MCG-Bupiv 0.125% Epi 150 ML EPIDURAL PRN (13:30)
[2018-01-19] MEDS ORDERED: Measles/Mumps/Rubella Vaccine Inj 0.5 ML Vial SQ ONE (16:00)
[2018-01-19] MEDS ORDERED: Diphtheria/Tetanus/Pertussis Vaccine Inj 0.5 ML Syringe IM ONE (16:00)
[2018-01-19] MEDS ORDERED: Naloxone Inj 0.4 MG/ML Vial IV.PUSH PRN (16:07)
[2018-01-19] MEDS ORDERED: Acetaminophen 325 MG Tablet PO PRN (16:07)
[2018-01-19] MEDS ORDERED: Zolpidem Tartrate 5 MG Tablet PO PRN (16:07)
[2018-01-19] MEDS ORDERED: Oxytocin 30 Units/500ml Premix 30 UNITS/500 ML BAG IV.CONT PRN (16:07)
[2018-01-19] MEDS ORDERED: Benzocaine 20% Top Spray 60 ML Can TOPICAL PRN (16:07)
[2018-01-19] MEDS ORDERED: Bisacodyl 10 MG Supp RECTAL PRN (16:07)
[2018-01-19] MEDS ORDERED: Witch Hazel 50%/Glyderin 12.5% 40 Pad Jar RECTAL PRN (16:07)
--- NOTE | 2018-01-19 16:09 | P.OBDELI ---
Weeks Gestation: 37 Patient Started Active Labor: Yes Medical Induction of Labor: Yes Artificial Rupture of Membrane: Yes Anesthesia: Epidural Episiotomy: none Vaginal Delivery: Normal Presentation: Occiput anterior Nuchal Cord: None Delayed Cord Clamping (45 sec): Yes Placenta: Spontaneous delivery, 3 vessel cord Laceration: Vaginal, 2 deg Repair: Chromic running Estimated blood loss (mL): 200 : Female Female A Infant Delivery Date: 01/19/18 Delivery Time: 15:46 score (1 min): 8 score (5 min): 9
[2018-01-19] MEDS: Senna/Docusate Sodium 8.6/50 MG Tablet PO SCH (21:50)
[2018-01-20] MEDS: Senna/Docusate Sodium 8.6/50 MG Tablet PO SCH (09:54)
[2018-01-20] MEDS: Prenatal Vit/Ca/Iron/Folic Acid Tablet PO SCH (09:54)
--- NOTE | 2018-01-20 10:17 | P.PNOB ---
Subjective Post day: 1 Interval history: doing well, breast and bottle feeding, cramps improving, infant girl "Moses" doing well Objective Vital Signs/I&O: Vital Signs 01/19/18 11:41 01/19/18 12:20 01/19/18 13:00 Temperature 99.7 F H 98.8 F Pulse Rate 83 87 Respiratory Rate 20 18 Blood Pressure 125/76 132/73 01/19/18 13:05 01/19/18 13:46 01/19/18 13:55 Temperature 99.7 F H Pulse Rate 94 H 74 72 Respiratory Rate 18 Blood Pressure 122/72 124/64 01/19/18 14:40 01/19/18 14:45 01/19/18 14:55 Temperature 99.7 F H Pulse Rate 79 91 H 94 H Respiratory Rate 20 Blood Pressure 122/65 138/87 01/19/18 15:15 01/19/18 16:08 01/19/18 16:14 Temperature 99.9 F H Pulse Rate 86 86 Respiratory Rate 18 18 Blood Pressure 129/80 117/52 L 01/19/18 16:15 01/19/18 16:31 01/19/18 16:45 Temperature Pulse Rate 119 H 82 89 Respiratory Rate 20 Blood Pressure 120/81 110/59 L 114/55 L 01/19/18 16:48 01/19/18 17:00 01/19/18 17:16 Temperature Pulse Rate 88 111 H Respiratory Rate 18 20 18 Blood Pressure 120/72 108/86 01/19/18 17:31 01/19/18 17:50 01/19/18 18:20 Temperature 98.0 F Pulse Rate 93 H 103 H 100 H Respiratory Rate 20 20 20 Blood Pressure 123/75 132/70 126/68 01/19/18 21:00 Temperature 99.2 F Pulse Rate 82 Respiratory Rate 16 Blood Pressure 99/62 L Intake & Output 01/19/18 01/20/18 01/20/18 18:59 06:59 18:59 Intake Total 1000 / 1000 Balance 1000 / 1000 Intake: IV 1000 / 1000 LR 1000 mL Inj 1,000 ML @ 125 1000 / 1000 mls/hr IV.CONT .Q8H [facility] Rx#: [id number] Result Diagrams: 01/18/18 15:35 01/18/18 15:35 Objective Remarks: GENERAL: Well-nourished, well-developed patient. CARDIOVASCULAR: Regular rate and rhythm without murmurs, gallops, or rubs. RESPIRATORY: Breath sounds equal bilaterally. No accessory muscle use. ABDOMEN/GI: Abdomen soft, non-tender. Fundus: Firm, non-tender at umbilicus. GENITOURINARY: Light to moderate bleeding. EXTREMITIES: No cyanosis or edema, non-tender, without signs of DVT. Medications and IVs: Active Medications Acetaminophen (Tylenol) 650 mg PO Q4H PRN PRN Reason: PAIN SCALE 1 TO 2 Al Hydroxide/Mg Hydroxide (Milk Of Magnesia Liq) 30 ml PO Q12H PRN PRN Reason: Mild Constipation Benzocaine (Americaine 20% [place]) 1 spray TOPICAL Q4H PRN PRN Reason: For Perineum Discomfort Bisacodyl (Dulcolax Supp) 10 mg RECTAL DAILY PRN PRN Reason: SEVERE CONSITIPATION Ephedrine Sulfate (Ephedrine/Ns Syringe) 10 mg IV.PUSH UNSCH PRN PRN Reason: SEE LABEL COMMENTS Stop: 01/20/18 13:09 Oxytocin (Pitocin 30 Units/Ns 500 Ml Premix) 30 units in 500 mls @ 100 mls/hr IV.CONT UNSCH PRN PRN Reason: Heavy bleeding Ibuprofen (Motrin) 800 mg PO Q8H PRN PRN Reason: For Cramping Last Admin: 01/20/18 09:54 Dose: 800 mg Lactulose (Lactulose Liq) 30 ml PO DAILY PRN PRN Reason: SEVERE CONSITIPATION Lidocaine HCl (Xylocaine 1% Inj) 10 ml INFILTRATN PRN PRN PRN Reason: For episiotomy repair Stop: 01/20/18 16:55 Mineral Oil (Muri-Lube Oil) 10 ml TOPICAL PRN PRN PRN Reason: PRN perineal massage Miscellaneous Information (Misc Information) 1 each OTHER UNSCH PRN PRN Reason: SEE LABEL COMMENTS Stop: 01/20/18 13:09 Naloxone HCl (Narcan Inj) 0.1 mg IV.PUSH Q2M PRN PRN Reason: for opiate reversal Ondansetron HCl (Zofran Odt) 4 mg PO Q6H PRN PRN Reason: NAUSEA OR VOMITING Oxycodone/Acetaminophen (Percocet 5/325 Mg) 1 tab PO Q4H PRN PRN Reason: PAIN SCALE 3 TO 5 Oxycodone/Acetaminophen (Percocet 5/325 Mg) 2 tab PO Q4H PRN PRN Reason: PAIN SCALE 6 TO 10 Vit/Calcium/Iron/Folic Ac ([place]uartnatal Plus 3) 1 tab PO DAILY [facility] Last Admin: 01/20/18 09:54 Dose: 1 tab Senna/Docusate Sodium (Oma-Colace) 1 tab PO BID [facility] Last Admin: 01/20/18 09:54 Dose: 1 tab Sennosides (Senokot) 17.2 mg PO Q12H PRN PRN Reason: Moderate Constipation Sodium Chloride (Ns Flush) 2 ml IV.FLUSH BID [facility] Last Admin: 01/20/18 09:54 Dose: 2 ml Sodium Chloride (Ns Flush) 2 ml IV.FLUSH PRN PRN PRN Reason: FLUSH AFTER USING IV ACCESS Witch Luli/Glycerin (Tucks Pads) 1 applicatio RECTAL QID PRN PRN Reason: HEMORRHOIDS Zolpidem Tartrate (Ambien) 5 mg PO HS PRN PRN Reason: SLEEP Assessment and Plan - Diagnosis (1) (spontaneous vaginal delivery) Code(s): O80 - Encounter for full-term uncomplicated delivery Status: Acute (2) Preeclampsia Code(s): O14.90 - Unspecified pre-eclampsia, unspecified trimester Status: Acute (3) 37 weeks gestation of Code(s): Z3A.37 - 37 weeks gestation of Status: Acute - Plan PPD#1 - routine supportive care, no symptoms of PreE now s/p delivery, normal BPs & labs - anticipate d/c to home 01/21/18 Discharge Planning: routine
[2018-01-20 12:53] VITALS: RESP 18
--- NOTE | 2018-01-21 07:48 | P.PNOB ---
Subjective Post day: 2 Interval history: doing very well nursing no pain bleeding minimal Objective Vital Signs/I&O: Vital Signs 01/20/18 08:50 01/20/18 20:45 01/21/18 05:35 Temperature 98.7 F 98.2 F 97.6 F Pulse Rate 98 H 83 77 Respiratory Rate 18 18 Blood Pressure 117/70 124/84 115/72 Result Diagrams: 01/18/18 15:35 01/18/18 15:35 Objective Remarks: GENERAL: Well-nourished, well-developed patient. CARDIOVASCULAR: Regular rate and rhythm without murmurs, gallops, or rubs. RESPIRATORY: Breath sounds equal bilaterally. No accessory muscle use. ABDOMEN/GI: Abdomen soft, non-tender. Fundus: Firm, non-tender at umbilicus. GENITOURINARY: Light to moderate bleeding. EXTREMITIES: No cyanosis or edema, non-tender, without signs of DVT. Medications and IVs: Active Medications Acetaminophen (Tylenol) 650 mg PO Q4H PRN PRN Reason: PAIN SCALE 1 TO 2 Al Hydroxide/Mg Hydroxide (Milk Of Magnesia Liq) 30 ml PO Q12H PRN PRN Reason: Mild Constipation Benzocaine (Americaine 20% Top [place]) 1 spray TOPICAL Q4H PRN PRN Reason: For Perineum Discomfort Bisacodyl (Dulcolax Supp) 10 mg RECTAL DAILY PRN PRN Reason: SEVERE CONSITIPATION Oxytocin (Pitocin 30 Units/Ns 500 Ml Premix) 30 units in 500 mls @ 100 mls/hr IV.CONT UNSCH PRN PRN Reason: Heavy bleeding Ibuprofen (Motrin) 800 mg PO Q8H PRN PRN Reason: For Cramping Last Admin: 01/21/18 05:27 Dose: 800 mg Lactulose (Lactulose Liq) 30 ml PO DAILY PRN PRN Reason: SEVERE CONSITIPATION Mineral Oil (Muri-Lube Oil) 10 ml TOPICAL PRN PRN PRN Reason: PRN perineal massage Naloxone HCl (Narcan Inj) 0.1 mg IV.PUSH Q2M PRN PRN Reason: for opiate reversal Ondansetron HCl (Zofran Odt) 4 mg PO Q6H PRN PRN Reason: NAUSEA OR VOMITING Oxycodone/Acetaminophen (Percocet 5/325 Mg) 1 tab PO Q4H PRN PRN Reason: PAIN SCALE 3 TO 5 Oxycodone/Acetaminophen (Percocet 5/325 Mg) 2 tab PO Q4H PRN PRN Reason: PAIN SCALE 6 TO 10 Vit/Calcium/Iron/Folic Ac (Stuartnatal Plus 3) 1 tab PO DAILY [facility] Last Admin: 01/20/18 09:54 Dose: 1 tab Senna/Docusate Sodium (Oma-Colace) 1 tab PO BID [facility] Last Admin: 01/20/18 09:54 Dose: 1 tab Sennosides (Senokot) 17.2 mg PO Q12H PRN PRN Reason: Moderate Constipation Sodium Chloride (Ns Flush) 2 ml IV.FLUSH BID [facility] Last Admin: 01/20/18 22:39 Dose: Not Given Sodium Chloride (Ns Flush) 2 ml IV.FLUSH PRN PRN PRN Reason: FLUSH AFTER USING IV ACCESS Witch Luli/Glycerin (Tucks Pads) 1 applicatio RECTAL QID PRN PRN Reason: HEMORRHOIDS Zolpidem Tartrate (Ambien) 5 mg PO HS PRN PRN Reason: SLEEP Assessment and Plan - Diagnosis (1) (spontaneous vaginal delivery) Code(s): O80 - Encounter for full-term uncomplicated delivery Status: Acute (2) Preeclampsia Code(s): O14.90 - Unspecified pre-eclampsia, unspecified trimester Status: Acute (3) 37 weeks gestation of Code(s): Z3A.37 - 37 weeks gestation of Status: Acute - Plan PPD#1 - routine supportive care, no symptoms of PreE now s/p delivery, normal BPs & labs - anticipate d/c to home 01/21/18 PPD #2 ready for discharge today counseled in depth and will return in 2 weeks or prn Discharge Planning: routine
[2018-01-21 08:36] VITALS: BP 132/85
[2018-01-21 08:37] VITALS: PULSE 93
[2018-01-21 08:38] VITALS: TEMP 99.3
[2018-01-21] MEDS: Prenatal Vit/Ca/Iron/Folic Acid Tablet PO SCH (08:56)
[2018-01-21] MEDS: Senna/Docusate Sodium 8.6/50 MG Tablet PO SCH (08:56)
== END 2018-01-21 16:34 | disposition home or self-care (01) ==
LOC: HOBED 14:11 → H2E 15:09 → H1EA 01-19 18:12
PROVIDERS: ADMIT Obstetrics & Gynecology; ATTEND Obstetrics & Gynecology